=== PATIENT | female | born 1985 | race Caucasian/White ===

== ENCOUNTER 2019-08-03 18:05 | Inpatient (IN) | payer MEDICAID ==
[~2019-08-03] VITALS: Ht 170.2 cm; Wt 101.2 kg
[2019-08-03] MEDS: OXYTOCIN 20 UNITS in DEXT 5% / LACT RING 1,000 ML IV SCH (11:20)
[~2019-08-03 18:05] MED LIST: DESFLURANE 240 ML BTL INH ONE; DEXAMETHASONE 4 MG/ML VIAL ONE; KETOROLAC 30 MG/ML VIAL ONE; ONDANSETRON 4 MG/2 ML VIAL ONE; PROPOFOL 200 MG/20 ML VIAL IV ONE; ROCURONIUM 50 MG/5 ML VIAL IV ONE
[2019-08-03] MEDS ORDERED: LACTATED RINGERS 1,000 ML IV SCH (18:26)
[2019-08-03] MEDS ORDERED: CITRIC ACID/SODIUM CITRATE 30 ML UDC PO SCH (18:30)
[2019-08-03] MEDS ORDERED: NALBUPHINE 10 MG/ML AMP IVP PRN (18:50)
[2019-08-03 19:31] LABS: APPEARANCE,URINE CLEAR (CLEAR); BILIRUBIN,URINE NEGATIVE (NEGATIVE); BLOOD, URINE NEGATIVE (NEGATIVE); LEUKOCYTE ESTERASE ,URINE NEGATIVE (NEGATIVE); NITRITE, URINE NEGATIVE (NEGATIVE); UGLUCOSE NEGATIVE (NEGATIVE)
[2019-08-03 19:36] LABS: BARBITURATE, URINE NEG. ng/ml (NEG <=200); BENZODIAZEPINE, URINE NEG. ng/mL (NEG <=200); CANNABINOID, URINE NEG. ng/mL (NEG <=50); COCAINE, URINE NEG. ng/mL (NEG <=300); OPIATE, URINE NEG. ng/mL (NEG <=2000); PHENCYCLIDINE SCREEN,URINE NEG. ng/mL (NEG <=25)
[2019-08-03 19:37] LABS: COLOR,URINE STRAW (YELLOW)
[2019-08-03 20:34] LABS: RAPID PLASMA REAGIN NON-REACTIVE (Non Reactiv)
[2019-08-03 21:59] LABS: BASOPHILS # (AUTO) 0.1 K/uL (0.00-0.22); BASOPHILS % (AUTO) 0.6 % (0.0-2.0); EOSINOPHILS # (AUTO) 0.1 K/uL (0-0.4); HEMATOCRIT 37.1 % (36-48); HEMOGLOBIN 12.2 g/dL (12.0-16.0); LYMPHOCYTES # (AUTO) 2.6 K/uL (2.5-16.5); LYMPHOCYTES % (AUTO) 24.8 % (20.5-51.1); MEAN CORPUSCULAR HEMOGLOBIN 28 pg (27-31); MEAN CORPUSCULAR HGB CONC 33 g/dL (33-37); MEAN CORPUSCULAR VOLUME 84.6 fL (80-94); MONOCYTES # (AUTO) 0.5 K/uL (0.8-1.0); MONOCYTES % (AUTO) 5.3 % (1.7-9.3); NEUTROPHILS % (AUTO) 68.3 % (42.2-75.2); PLATELET COUNT (AUTO) 224 K/uL (140-450); RED BLOOD CELL COUNT(AUTO) 4.38 MIL/uL (4.20-5.40); RED CELL DISTRIBUTION WIDTH 14.4 % (11.6-13.7); WHITE BLOOD COUNT (AUTO) 10.3 K/uL (4.8-10.8)
[2019-08-03] MEDS ORDERED: MORPHINE PRES FREE 10 MG/10 ML AMP IV ONE (22:08)
[2019-08-03] MEDS ORDERED: TEMAZEPAM 15 MG CAP PO PRN (22:45)
[2019-08-03] MEDS ORDERED: METHYLERGONOVINE 0.2 MG/ML AMP IM PRN (22:45)
[2019-08-03] MEDS ORDERED: ONDANSETRON 4 MG/2 ML VIAL ONE (23:01)
[2019-08-03] MEDS ORDERED: OXYTOCIN 20 UNITS in LACTATED RINGERS 1,000 ML IV SCH (23:26)
[2019-08-03] MEDS ORDERED: NALOXONE 0.4 MG/ML VIAL IVP PRN (23:30)
[2019-08-03] MEDS ORDERED: ONDANSETRON 4 MG/2 ML VIAL IVP PRN (23:30)
[2019-08-03] MEDS ORDERED: diphenhydrAMINE 50 MG/ML VIAL IVP PRN (23:30)
[2019-08-03] MEDS ORDERED: OXYTOCIN 20 UNITS/LR PREMIX 1,000 ML IV ONE (23:32)
[2019-08-04] MEDS: KETOROLAC 30 MG/ML VIAL IVP PRN ×2 (03:09→15:10)
[2019-08-04] MEDS: IBUPROFEN 800 MG TAB PO PRN ×2 (05:52→10:39)
[2019-08-04 06:12] LABS: BASOPHILS % (AUTO) 0.2 % (0.0-2.0); EOSINOPHILS % (AUTO) 0.3 % (0.0-4.0); HEMATOCRIT 33.5 % (36-48); LYMPHOCYTES # (AUTO) 2.1 K/uL (2.5-16.5); LYMPHOCYTES % (AUTO) 18.3 % (20.5-51.1); MEAN CORPUSCULAR HEMOGLOBIN 28 pg (27-31); MEAN CORPUSCULAR HGB CONC 33 g/dL (33-37); MEAN CORPUSCULAR VOLUME 84.2 fL (80-94); MONOCYTES # (AUTO) 0.6 K/uL (0.8-1.0); MONOCYTES % (AUTO) 4.8 % (1.7-9.3); NEUTROPHILS # (AUTO) 8.9 K/uL (1.8-7.7); NEUTROPHILS % (AUTO) 76.4 % (42.2-75.2); PLATELET COUNT (AUTO) 169 K/uL (140-450); RED BLOOD CELL COUNT(AUTO) 3.98 MIL/uL (4.20-5.40); RED CELL DISTRIBUTION WIDTH 14.1 % (11.6-13.7); WHITE BLOOD COUNT (AUTO) 11.7 K/uL (4.8-10.8)
--- NOTE | 2019-08-04 08:24 | NUR ---
PATIENT HAS BEEN SCREENED AND CATEGORIZED LOW NUTRITION RISK. PATIENT WILL BE SEEN WITHIN 7 DAYS OF ADMISSION. 08/10/[address]
[2019-08-04] MEDS: SIMETHICONE 80 MG TAB.CHEW PO PRN ×2 (15:09→18:57)
[2019-08-04] MEDS: HYDROcodone/APAP 5/325 MG 1 TAB TAB PO PRN (18:57)
[2019-08-04] MEDS: OXYTOCIN 20 UNITS in DEXT 5% / LACT RING 1,000 ML IV SCH (19:44)
[2019-08-04] MEDS: DOCUSATE SOD/SENNA 50/8.6 MG 1 TAB PO SCH (21:06)
[2019-08-04] MEDS: SENNA 8.6 MG TAB PO SCH (21:07)
[2019-08-05] MEDS: oxyCODONE/APAP 5/325 MG 1 TAB TAB PO PRN ×4 (00:05→20:53)
[2019-08-05] MEDS: SIMETHICONE 80 MG TAB.CHEW PO PRN ×2 (13:16→20:57)
[2019-08-05] MEDS: DOCUSATE SOD/SENNA 50/8.6 MG 1 TAB PO SCH (20:54)
[2019-08-05] MEDS: SENNA 8.6 MG TAB PO SCH (20:57)
[2019-08-06] MEDS: oxyCODONE/APAP 5/325 MG 1 TAB TAB PO PRN (04:58)
[2019-08-06] MEDS: SIMETHICONE 80 MG TAB.CHEW PO PRN (10:03)
[2019-08-06] MEDS: HYDROcodone/APAP 5/325 MG 1 TAB TAB PO PRN (10:04)
== END 2019-08-06 12:35 | disposition home or self-care (01) | DRG 540 ==
LOC: MLD 18:05 → OBSVTOIN 18:26 → MFCC 18:39
PROVIDERS: ADMIT Obstetrics & Gynecology; ATTEND Obstetrics & Gynecology
PROC: 10D00Z1 Extraction of Products of Conception, Low, Open Approach (ICD-10-PCS; principal; 2019-08-03 22:00)
PROC: 3E0234Z Introduction of Serum, Toxoid and Vaccine into Muscle, Percutaneous Approach (ICD-10-PCS; 2019-08-05)
DX: O34.211 Maternal care for low transverse scar from previous cesarean delivery (principal); O60.14X0 Preterm labor third trimester with preterm delivery third trimester, not applicable or unspecified; Z37.0 Single live birth; Z3A.36 36 weeks gestation of pregnancy; Z23 Encounter for immunization
CPT/HCPCS: 36415; 80305; 81003; 85025; 86592; 86762; 86886; 86900; 86901; 87340; 90715; G0378; J0690; J1100; J1885; J2270; J2405; J2590; J2704; J3490; J7060; J7120

== ENCOUNTER 2021-02-03 06:32 | Observation (INO) | payer MEDICAID ==
[~2021-02-03] VITALS: Ht 170.2 cm; Wt 113.4 kg
[2021-02-03] MEDS ORDERED: LACTATED RINGERS 500 ML IV SCH (08:00)
[2021-02-03] MEDS ORDERED: LACTATED RINGERS 1,000 ML IV SCH (08:00)
[2021-02-03] MEDS ORDERED: TERBUTALINE 1 MG/ML VIAL SUBQ SCH (08:05)
[2021-02-03] MEDS ORDERED: NACL 0.9% 500 ML IV SCH (08:05)
[2021-02-03] MEDS ORDERED: NACL 0.9% 1,000 ML IV SCH (08:05)
[2021-02-03] MEDS ORDERED: cefTRIAXone 1,000 MG VIAL ONE (08:26)
[2021-02-03 09:08] VITALS: BP 143/86
[2021-02-03 10:44] LABS: APPEARANCE,URINE CLEAR (CLEAR); BILIRUBIN,URINE NEGATIVE (NEGATIVE); BLOOD, URINE NEGATIVE (NEGATIVE); COLOR,URINE YELLOW (YELLOW); LEUKOCYTE ESTERASE ,URINE NEGATIVE (NEGATIVE); NITRITE, URINE NEGATIVE (NEGATIVE); UGLUCOSE NEGATIVE (NEGATIVE)
== END 2021-02-03 11:25 | disposition home or self-care (01) ==
LOC: MLD 06:32
PROVIDERS: ADMIT Obstetrics & Gynecology; ATTEND Obstetrics & Gynecology
DX: O62.9 Abnormality of forces of labor, unspecified (principal); Z3A.31 31 weeks gestation of pregnancy
CPT/HCPCS: 59025; 81003; 96365; 96372; G0378; J0696; J3105; J7060

== ENCOUNTER 2021-02-05 15:51 | Observation (INO) | payer MEDICAID ==
[~2021-02-05] VITALS: Ht 170.2 cm; Wt 113.4 kg
[2021-02-05] MEDS ORDERED: LACTATED RINGERS 1,000 ML IV SCH (16:55)
[2021-02-05 16:56] VITALS: BP 139/83
[2021-02-05] MEDS ORDERED: PNV1TABL PO (17:01)
[2021-02-05] MEDS ORDERED: NACL 0.9% 1,000 ML IV SCH (17:35)
[2021-02-05] MEDS ORDERED: cefTRIAXone 1,000 MG VIAL ONE (17:42)
== END 2021-02-05 20:29 | disposition home or self-care (01) ==
LOC: MLD 15:51
PROVIDERS: ADMIT Obstetrics & Gynecology; ATTEND Obstetrics & Gynecology
DX: O26.893 Other specified pregnancy related conditions, third trimester (principal); R10.9 Unspecified abdominal pain; Z3A.32 32 weeks gestation of pregnancy
CPT/HCPCS: 59025; 81000; 96365; G0378; J0696; J7060